=== PATIENT | male | born 1935 | race Caucasian/White ===

== ENCOUNTER 2016-05-04 12:50 | Emergency (ER) | payer MEDICARE, OTHER ==
[2016-05-04 13:37] LABS: BASOPHIL % 0.5 % (0.0-0.4); Eosinophil % 5.1 % (0.00-5.0); Granulocytes % 57.1 % (36.0-66.0); Lymphocytes % 27.5 % (24.0-44.0); Mean Cell Volume 99.5 fl (78-100); Mean Platelet Volume 9.4 fl (6-9.5); Monocytes % 9.8 % (0.0-12.0); Platelet Count 188 K/mm3 (150-450); Red Blood Count 3.97 M/mm3 (4.1-5.6); Red Cell Distribution Width 12.9 % (11.5-14.0); White Blood Count 8.4 K/mm3 (4.0-10.5)
--- NOTE | 2016-05-04 13:51 | XRAY ---
Indication: Short of breath. Comparison: October 18, 2014. Portable apical lordotic chest demonstrates new left base discoid atelectasis/scarring. Remaining heart and lungs normal. Bony thorax intact.
[2016-05-04 13:53] LABS: ALBUMIN 4.1 g/dL (3.4-5.0); ALKALINE PHOSPHATASE 88 U/L (46-116); ANION GAP 15.1 MEQ/L (5-15); BILIRUBIN,TOTAL 0.4 mg/dL (0.2-1.0); BLOOD UREA NITROGEN 16 mg/dL (9-20); CHLORIDE 98 mEq/L (98-107); Carbon Dioxide 23.6 mEq/L (21-32); Glucose 114 MG/DL (70-110); Potassium 4.4 mEq/L (3.5-5.1); SGOT/AST 15 U/L (15-37); SGPT/ALT 18 U/L (12-78); SODIUM 132 mEq/L (136-145); Total Protein 7.1 gm/dL (6.4-8.2)
[2016-05-04] MEDS ORDERED: Lasix 40 MG/4 ML IV ONE (13:53)
--- NOTE | 2016-05-04 13:53 | ERPHSYRPT ---
- History of Present Illness Time Seen by Provider: 05/04/16 13:50 Source: patient, family Exam Limitations: no limitations Patient Subjective Stated Complaint: pt states he began feeling sob on 05/03/16 in the pm. states sob became worse over the past 12hrs. states it increases with exertion. states he had chest pressure this morning. denies any illness or fever. Triage Nursing Assessment: pt, pink, warm, dry. lung sounds clear and equal. pt afebrile. Physician History: The patient is an 80-year-old male with his family complaining of shortness of breath that began last night and was worsened with lying flat on his back in bed. The shortness of breath is still there this morning. He complains of shortness of breath with exertion. He had a 10 minute episode of chest pressure this morning about 5 or 6 hours ago that has resolved. He denies cough. He denies sore throat or muscle aches. His past medical history is significant for hypertension, gout, BPH, high cholesterol, and GERD. Timing/Duration: yesterday Activities at Onset: sleep Severity of Dyspnea-Max: moderate Severity of Dyspnea-Current: moderate Possible Cause: occasional episodes Modifying Factors: Improves With: lying down Associated Symptoms: denies symptoms Allergies/Adverse Reactions: No Known Drug Allergies Allergy (Unverified 05/04/16 13:17) Home Medications: Allopurinol 300 mg [Zyloprim 300 mg] 300 mg PO DAILY 10/18/14 [History] Aspirin 81 mg PO DAILY 10/18/14 [History] Atorvastatin Calcium 10 mg PO DAILY 10/18/14 [History] Finasteride 5 mg [Proscar 5 MG] 5 mg PO DAILY 10/18/14 [History] Hydrochlorothiazide 12.5 mg PO DAILY 10/18/14 [History] Metoprolol Succinate 25 mg PO DAILY 10/18/14 [History] Omeprazole 20 MG [Prilosec 20 mg] 20 mg PO DAILY 10/18/14 [History] Quinapril HCl 20 mg PO DAILY 10/18/14 [History] Tamsulosin HCl 0.4 mg [Flomax 0.4 MG] 0.4 mg PO BID 10/18/14 [History] Hx Tetanus, Diphtheria Vaccination/Date Given: Yes (unknown) Hx Influenza Vaccination/Date Given: Yes Hx Pneumococcal Vaccination/Date Given: No Immunizations Up to Date: Yes - Review of Systems Constitutional: No Fever, No Chills Eyes: No Symptoms Ears, Nose, & Throat: No Symptoms Respiratory: Dyspnea, Dyspnea on Exertion (MCMAHON) Cardiac: Chest Pain Abdominal/Gastrointestinal: No Abdominal Pain, No Nausea, No Vomiting, No Diarrhea Genitourinary Symptoms: No Dysuria Musculoskeletal: No Back Pain, No Neck Pain Skin: No Rash Neurological: No Dizziness, No Focal Weakness, No Sensory Changes Psychological: No Symptoms Endocrine: No Symptoms Hematologic/Lymphatic: No Symptoms Immunological/Allergic: No Symptoms All Other Systems: Reviewed and Negative - Past Medical History Pertinent Past Medical History: Yes Neurological History: No Pertinent History Cardiac History: High Cholesterol, Hypertension GI Medical History: GERD Male Reproductive Disorders: Prostate Problems - Past Surgical History Past Surgical History: Yes Musculoskeletal: Orthopedic Surgery Male Surgical History: Prostate Surgery - Social History Smoking Status: Never smoker Exposure to second hand smoke: No Drug Use: none Patient Lives Alone: No - Nursing Vital Signs Nursing Vital Signs: Initial Vital Signs Temperature 97.6 F Temperature Source Oral Pulse Rate 120 Respiratory Rate 20 Blood Pressure [Right Arm] 118/72 Pain Intensity 0 - Physical Exam General Appearance: no apparent distress, alert Eye Exam: PERRL/EOMI Ears, Nose, Throat Exam: normal pharynx Neck Exam: normal inspection, supple Respiratory Exam: normal breath sounds Cardiovascular/Chest Exam: normal heart sounds, regular rate/rhythm Abdominal/Gastrointestinal Exam: soft, No tenderness, No distention, No mass Rectal Exam: not done Extremity Exam: pedal edema (1+) Neurologic Exam: alert, oriented x 3, cooperative, sped teacher II-XII nml as tested, sensation nml, No motor deficits Skin Exam: normal color, warm, No dry SpO2 Interpretation: normal SpO2: 100 Oxygen Delivery: Nasal Cannula - Course EKG Interpreted by Me: Sinus Rhythm, NORMAL AXIS, NORMAL INTERVALS, NORMAL ST-T - Radiology Exams Chest X-ray Interpretation: Teleradiologist Report, Negative (no acute per Dr Barahona.) Ordered Tests: Active Orders 24 hr Category Date Time Status Facing Baster Jumpbasting STAT Care 05/04/16 13:21 Active Catheter-Macclenny Slater STAT Care 05/04/16 14:36 Completed EKG-ER Only STAT Care 05/04/16 13:21 Active Slater [Catheter-Macclenny Slater] STAT Care 05/04/16 14:35 Active IV Insertion STAT Care 05/04/16 13:21 Active Oxygen-ED Only NASAL CANNULA 2 lpm Care 05/04/16 13:22 Active Pulse Oximetry (ED) STAT Care 05/04/16 13:21 Active CHEST 1 VIEW (PORTABLE) Stat Exams 05/04/16 13:23 Completed CBC W DIFF Stat Lab 05/04/16 13:20 Completed CMP Stat Lab 05/04/16 13:20 Completed NT PRO BNP Stat Lab 05/04/16 13:53 Completed TROPONIN Stat Lab 05/04/16 13:20 Completed UA W/ MICROSCOPIC Stat Lab 05/04/16 15:00 Completed Medication Summary Discontinued Medications Generic Name Dose Route Start Last Admin Trade Name Arik PRN Reason Stop Dose Admin Furosemide 40 mg 05/04/16 13:53 05/04/16 13:57 Lasix 40 Mg/4 Ml IV 05/04/16 13:54 40 mg STAT ONE Administration Furosemide Confirm 05/04/16 13:56 Lasix 40 Mg/4 Ml Administered 05/04/16 13:57 Dose 40 mg .ROUTE .DinnDinn ONE Lab/Rad Data: Laboratory Result Diagrams 05/04/16 13:20 05/04/16 13:20 Laboratory Results 05/04/16 05/04/16 05/04/16 Range/Units 15:00 14:08 13:53 WBC (4.0-10.5) K/mm3 RBC (4.1-5.6) M/mm3 Hgb (12.5-18.0) gm/dl Hct (42-50) % MCV (78-100) fl MCH (26-32) pg MCHC (32-36) g/dl RDW (11.5-14.0) % Plt Count (150-450) K/mm3 MPV (6-9.5) fl Gran % (36.0-66.0) % Lymphocytes % (24.0-44.0) % Monocytes % (0.0-12.0) % Eosinophils % (0.00-5.0) % Basophils % (0.0-0.4) % Basophils # (0-0.4) Sodium (136-145) mEq/L Potassium (3.5-5.1) mEq/L Chloride (98-107) mEq/L Carbon Dioxide (21-32) mEq/L Anion Gap (5-15) MEQ/L BUN (9-20) mg/dL Creatinine (0.55-1.30) mg/dl Estimated GFR ML/MIN Glucose (70-110) MG/DL Calcium (8.5-10.1) mg/dL Total Bilirubin (0.2-1.0) mg/dL AST (15-37) U/L ALT (12-78) U/L Alkaline Phosphatase (46-116) U/L Troponin I (0.000-0.056) ng/ml NT-Pro-B Natriuret Pep 163 (0-450) pg/ml Serum Total Protein (6.4-8.2) gm/dL Albumin (3.4-5.0) g/dL Ur Collection Type CCMS Urine Color YELLOW (YELLOW) Urine Appearance CLEAR (CLEAR) Urine pH 7.0 (5-6) Ur Specific [place] 1.010 (1.005-1.025) Urine Protein NEGATIVE (Negative) Urine Glucose (UA) NEGATIVE (NEGATIVE) mg/dL Urine Ketones NEGATIVE (NEGATIVE) Urine Nitrite NEGATIVE (NEGATIVE) Urine Bilirubin NEGATIVE (NEGATIVE) Urine Urobilinogen 0.2 (0-1) mg/dL Urine WBC (Auto) TRACE (NEGATIVE) Urine RBC (Auto) MODERATE (0-5) Roland/ul Urine Microscopic RBC 15-25 (0-2) /HPF Urine Microscopic WBC 0-2 (0-5) /HPF Influenza Type A Ag NEGATIVE (NEGATIVE) Influenza Type B Ag NEGATIVE (NEGATIVE) RSV (PCR) NEGATIVE (Negative) Specimen Received 05-04-16 1501 05/04/16 05/04/16 Range/Units 13:20 13:20 WBC 8.4 (4.0-10.5) K/mm3 RBC 3.97 L (4.1-5.6) M/mm3 Hgb 13.5 (12.5-18.0) gm/dl Hct 39.5 L (42-50) % MCV 99.5 (78-100) fl MCH 34.0 H (26-32) pg MCHC 34.2 (32-36) g/dl RDW 12.9 (11.5-14.0) % Plt Count 188 (150-450) K/mm3 MPV 9.4 (6-9.5) fl Gran % 57.1 (36.0-66.0) % Lymphocytes % 27.5 (24.0-44.0) % Monocytes % 9.8 (0.0-12.0) % Eosinophils % 5.1 H (0.00-5.0) % Basophils % 0.5 (0.0-0.4) % Basophils # 0.04 (0-0.4) Sodium 132 L (136-145) mEq/L Potassium 4.4 (3.5-5.1) mEq/L Chloride 98 (98-107) mEq/L Carbon Dioxide 23.6 (21-32) mEq/L Anion Gap 15.1 H (5-15) MEQ/L BUN 16 (9-20) mg/dL Creatinine 1.48 H (0.55-1.30) mg/dl Estimated GFR 49 ML/MIN Glucose 114 H (70-110) MG/DL Calcium 8.6 (8.5-10.1) mg/dL Total Bilirubin 0.4 (0.2-1.0) mg/dL AST 15 (15-37) U/L ALT 18 (12-78) U/L Alkaline Phosphatase 88 (46-116) U/L Troponin I < 0.017 (0.000-0.056) ng/ml NT-Pro-B Natriuret Pep (0-450) pg/ml Serum Total Protein 7.1 (6.4-8.2) gm/dL Albumin 4.1 (3.4-5.0) g/dL Ur Collection Type Urine Color (YELLOW) Urine Appearance (CLEAR) Urine pH (5-6) Ur Specific [place] (1.005-1.025) Urine Protein (Negative) Urine Glucose (UA) (NEGATIVE) mg/dL Urine Ketones (NEGATIVE) Urine Nitrite (NEGATIVE) Urine Bilirubin (NEGATIVE) Urine Urobilinogen (0-1) mg/dL Urine WBC (Auto) (NEGATIVE) Urine RBC (Auto) (0-5) Roland/ul Urine Microscopic RBC (0-2) /HPF Urine Microscopic WBC (0-5) /HPF Influenza Type A Ag (NEGATIVE) Influenza Type B Ag (NEGATIVE) RSV (PCR) (Negative) Specimen Received - Progress Progress: improved Air Movement: good Progress Note: 05/04/16 16:35 Pt feeling much better after lasix 40 mg IV. Blood Culture(s) Obtained: No Antibiotics given: No Counseled pt/family regarding: lab results, diagnosis, need for follow-up, rad results - Departure Time of Disposition: 16:35 Departure Disposition: Home Clinical Impression: Dyspnea Condition: Stable Critical Care Time: No Additional Instructions: You had shortness of breath that was helped with lasix 40 mg IV in the ER. Follow up as needed.
[2016-05-04] MEDS ORDERED: Lasix 40 MG/4 ML ONE (13:56)
[2016-05-04 13:57] LABS: TROPONIN < 0.017 ng/ml (0.000-0.056)
[2016-05-04 15:26] LABS: COMPLETE URINE MICROSCOPIC? YES; Collection Type CCMS; WBC 0-2 /HPF (0-5)
[2016-05-04 16:32] VITALS: BP 118/72; PULSE 120
[2016-05-04 16:37] VITALS: O2SAT 100
== END 2016-05-04 16:49 | disposition home or self-care (01) ==
LOC: ED 12:50
DX: R06.00 Dyspnea, unspecified (principal); R06.02 Shortness of breath; I10 Essential (primary) hypertension; R07.9 Chest pain, unspecified; E78.00 Pure hypercholesterolemia, unspecified; Z79.899 Other long term (current) drug therapy
CPT/HCPCS: 36000; 36415; 51702; 71010; 80053; 81000; 83880; 84484; 85025; 87631; 93005; 93041; 96374; 99284; J1940

== ENCOUNTER 2018-07-20 06:26 | Day surgery (SDC) | payer MEDICARE, OTHER ==
[2018-07-20] MEDS ORDERED: Ketamine HCl 50 MG/ML IV ONE (06:27)
[2018-07-20] MEDS ORDERED: DIPRIVAN 200 MG/20 ML IV ONE (06:27)
[2018-07-20] MEDS ORDERED: Lactated Ringers 1,000 ML IV SCH (06:30)
[2018-07-20] MEDS ORDERED: Lactated Ringers 1,000 ML IV ONE (06:31)
--- NOTE | 2018-07-20 08:49 | OP ---
SURGERY DATE/TIME: 07/20/2018 0757 PREOPERATIVE DIAGNOSIS: Metastatic cancer primary source undetermined. POSTOPERATIVE DIAGNOSES: 1) Normal EGD. 2) Mild sigmoid diverticulosis otherwise normal endoscopic evaluation. PROCEDURES: 1) Esophagogastroduodenoscopy. 2) Colonoscopy. SURGEON: Dr. Russell. ANESTHESIA: Medications were given by the anesthesia department. BRIEF HISTORY: The patient is an 82 year old white male patient with history of colon polyps. He apparently had been under evaluation for prostate cancer and they felt like after biopsy that it was a secondary source and if this is a secondary source the primary was elsewhere. They felt the patient needed to have endoscopic evaluation to determine the possibility of cancer in the region of the colon or the stomach. The patient was appraised of the risks of the procedure including the risk of perforation, phlebitis, untoward reaction to medication, bleeding and missed lesions. The patient verbalized his understanding and desired to have the procedure performed. DESCRIPTION OF PROCEDURE: The patient was given the medications by the anesthesia department. He had continuous pulse oximetry, ECG monitoring, intermittent blood pressure monitoring and tidal CO2 monitoring during the examination. He was placed in the left lateral decubitus position. A bite block was placed. The flexible Olympus gastroscope was used to intubate the oropharynx. A view of the larynx was obtained and was normal. The scope was easily introduced in the esophagus which was normal throughout its length other than the presence of hiatal hernia. The scope was passed into the stomach where normal gastric rugal folds were seen and these distended nicely with insufflation of air. The scope was passed along the greater curvature of the stomach to the antrum. The pylorus was encountered and intubated. Duodenum inspected and found to be normal. The scope is withdrawn towards the stomach. Again, a retroflex view was obtained of the lesser curvature, fundus and cardia regions of the stomach and these appeared to be normal as well. The scope was removed from the patient. Next, a digital rectal examination was performed and revealed normal anal sphincter tone and no masses. The flexible Olympus pediatric colonoscope was used to intubate the rectum. A view of the colon was developed sequentially to the cecum including a short distance into the terminal ileum. Upon insertion and withdrawal, including a retroflex view in the rectum, no mucosal lesions were noted other than scattered small sigmoid diverticula. The scope was removed from the patient who tolerated the procedure well and was sent back to OP recovery in good condition. The prep was noted to be fair to good.
[2018-07-20 09:03] VITALS: O2SAT 98
[2018-07-20 09:20] VITALS: BP 152/91; PULSE 67
== END 2018-07-20 09:35 | disposition home or self-care (01) ==
LOC: SDC 06:26
PROVIDERS: ATTEND Family Medicine
DX: Z12.11 Encounter for screening for malignant neoplasm of colon (principal); Z12.0 Encounter for screening for malignant neoplasm of stomach; C79.82 Secondary malignant neoplasm of genital organs; K57.30 Diverticulosis of large intestine without perforation or abscess without bleeding; Z86.010 Personal history of colon polyps
CPT/HCPCS: 99100; J2704